=== PATIENT | male | born 1970 ===

== ENCOUNTER → 2022-02-03 | Day surgery (SDC) | payer OTHER ==
[~2022-02-03] VITALS: Ht 182.9 cm; Wt 110.0 kg
[~2022-02-03] MED LIST: AMLO2.5T5 PO; IV RINGERS,LACTATED 1000ML 1,000 ML IV SCH; LIDOCAINE 2% PF 5 ML VIAL. ONE; LISI20TA18 PO; PROPOFOL 10 MG/ML (20ML) VIAL. IV ONE
[2022-02-03 06:36] VITALS: BP 178/98
--- NOTE | 2022-02-03 07:06 | PDOC2 ---
CONSULT Date of Consult Date of Consult DATE: 02/03/22 TIME: 07:01 Reason for Consult Reason for Consult: CRC screening Identification/Chief Complaint Chief Complaint 51 yo Male presents for colorectal cancer screening .Bowel habits are regular without diarrhea or constipation. No melena and/or hematochezia is noted. Weight and appetite are stable. No prior screening has been performed. He otherwise is without additional complaints. Past Medical History Cardiovascular: HTN Psych: Anxiety Endocrine: Other (Hyperlipidemia) Past Surgical History Past Surgical History: Other (Knee surgery) Family History Family History: Diabetes, Hypertension Social History Quit ALCOHOL: none Current Medications Current Medications Current Medications Ringer's Solution 1,000 ml @ 30 mls/hr Q24H IV Last administered on 02/03/22at 06:49; Start 02/03/22 at 06:00; Stop 02/03/22 at 17:59 Propofol (Diprivan) 200 mg STK-MED ONCE IV ; Start 02/03/22 at 07:00; Stop 02/03/22 at 07:00; Status DC Lidocaine HCl (Lidocaine Pf 2% Vial) 5 ml STK-MED ONCE .ROUTE ; Start 02/03/22 at 07:00; Stop 02/03/22 at 07:00; Status DC Active Scripts Active Reported Amlodipine Besylate 2.5 Mg Tablet 2.5 Mg PO DAILY Lisinopril 20 Mg Tablet 1 Tab PO DAILY Allergies Allergies: Coded Allergies: primaquine (Verified Allergy, Intermediate, Unknown, 02/03/22) Physical Exam General: Alert, Oriented X3 Lungs: Clear to auscultation Heart: Regular rate, Normal S1, Normal S2 Abdomen: Normal bowel sounds, Soft Vitals VITALS Vital Signs Date Time Temp Pulse Resp B/P (MAP) Pulse Ox O2 Delivery O2 Flow Rate FiO2 02/03/22 06:36 97.6 96 18 99 97.6 Assessment/Plan Assessment/Plan CRC screening- is recommended at this time. R/B discussed with patient who is willing to proceed. FLORY MASCORRO MD Feb 03, 2022 07:06
[2022-02-03 07:55] VITALS: BP 164/98
== END | disposition home or self-care (01) ==
LOC: ENDOS 06:29 → EEVIPCON 07:00
PROVIDERS: ATTEND Internal Medicine Gastroenterology
DX: Z12.11 Encounter for screening for malignant neoplasm of colon (principal); K64.0 First degree hemorrhoids; K63.89 Other specified diseases of intestine; I10 Essential (primary) hypertension; G47.30 Sleep apnea, unspecified; F41.9 Anxiety disorder, unspecified; E78.5 Hyperlipidemia, unspecified; Z87.891 Personal history of nicotine dependence; Z79.899 Other long term (current) drug therapy; Z98.890 Other specified postprocedural states; Z88.8 Allergy status to other drugs, medicaments and biological substances
CPT/HCPCS: 45378; J2704